=== PATIENT | female | born 1950 | race Two or more races ===

== ENCOUNTER 2019-04-02 22:35 | Emergency (ER) | payer MEDICARE, OTHER ==
[~2019-04-02] VITALS: Ht 162.6 cm; Wt 65.8 kg
[~2019-04-02 22:35] MED LIST: DOXYCYCLINE MO100 MG ORAL
--- NOTE | 2019-04-02 22:55 | NUR ---
ED Nurse Note: pt walked in c/o right knee pain x 4 days, pt reports it hurts at night time, rash appeared couple days ago and denies any recent injures. no swelling nor deformity nor wound noted, no tenderness noted, noted reddened rash on right knee. will cont monitor. pt ambulatory w/ steady gait.
[2019-04-02 23:15] VITALS: BP 138/86
--- NOTE | 2019-04-03 | NUR ---
ED Nurse Note: pt reports pain is better with medication. will cont monitor.
[2019-04-03] MEDS ORDERED: ACYCLOVIR400 MG ORAL (00:14)
[2019-04-03] MEDS ORDERED: IBUPROFEN600 MG ORAL (00:14)
[2019-04-03] MEDS ORDERED: NEURONTIN100 MG ORAL (00:14)
[2019-04-03] MEDS ORDERED: NORCO 5-325 TA1 EACH ORAL (00:14)
[2019-04-03 00:23] VITALS: BP 138/86
--- NOTE | 2019-04-03 00:23 | NUR ---
ED Nurse Note: pt cleared to be d/c per ERMD, pt discharge and aftercare instruction provided w/ prescription, pt education done via discussion and handout, pt advised to follow up with pcp or return to ed if changes in condition, vss, ambulatory w/ steady gait, pt left w/ all belongings accompanied by daughter.
--- NOTE | 2019-04-03 03:51 | Emergency Room Report ---
History of Present Illness General Chief Complaint: Pain Source: Patient Present Illness HPI Patient presents with complaints of rash to the right upper thigh in the area reports the rash has presented over the past 1 day Before that she had increased pain to that area A tingling sharp pain Denies any fevers or chills denies any fall or trauma denies any pain with walking Patient after further questioning reports that she has had shingles in the past mainly in the abdomen and other areas with similar presentation of pain follow with the rash Allergies: Coded Allergies: No Known Allergies (Unverified , 03/01/13) Patient History Past Medical History: see triage record Last Menstrual Period: n/a Reviewed Nursing Documentation: PMH: Agreed; PSxH: Agreed Nursing Documentation-PMH Past Medical History: No Stated History Review of Systems All Other Systems: negative except mentioned in HPI Physical Exam Vital Signs Date Time Temp Pulse Resp B/P (MAP) Pulse Ox O2 Delivery O2 Flow Rate FiO2 04/02/19 22:43 99.0 78 18 153/83 (106) 94 Room Air Sp02 EP Interpretation: reviewed, normal General Appearance: well appearing, no apparent distress Head: normocephalic, atraumatic Eyes: bilateral eye PERRL, bilateral eye EOMI ENT: hearing grossly normal, normal pharynx, TMs + canals normal, uvula midline Neck: full range of motion, supple, no meningismus, no bony tend Respiratory: lungs clear, no respiratory distress Cardiovascular #1: regular rate, rhythm Gastrointestinal: non tender, soft Musculoskeletal: normal inspection Neurologic: alert, oriented x3 Skin: other - 2 areas involving the medial aspect of the right knee distal thigh area also another lesion just at the proximal tibial region medially there is some question of a dermatomal pattern however early no obvious cellulitis no fluctuance Lymphatic: no adenopathy Medical Decision Making Diagnostic Impression: Primary Impression: shingles ER Course Upon initial arrival multiple differentials and consideration including but not limited to infectious, allergic reaction Given the patient's symptoms prior to the rash developing given the previous history of shingles patient is treated for this and will have close outpatient follow-up Last Vital Signs Date Time Temp Pulse Resp B/P (MAP) Pulse Ox O2 Delivery O2 Flow Rate FiO2 04/03/19 00:23 98.5 72 18 138/86 96 Room Air Status: improved Disposition: HOME, SELF-CARE Condition: Improved Scripts Hydrocodone Bit/Acetaminophen 5-325* (NORCO 5-325*) 1 Each Tablet 1 TAB ORAL Q6H PRN for For Pain, #10 TAB 0 Refills Prov: Jey Licea DO 04/03/19 Ibuprofen* (MOTRIN*) 600 Mg Tablet 600 MG ORAL Q8H PRN for For Pain, #30 TAB 0 Refills Prov: Jey Licea DO 04/03/19 Gabapentin* (NEURONTIN*) 100 Mg Capsule 200 MG ORAL THREE TIMES A DAY, #30 CAP Prov: Jey Licea DO 04/03/19 Acyclovir* (ACYCLOVIR*) 400 Mg Tablet 800 MG ORAL FIVE TIMES A DAY for 7 Days, TAB Prov: Jey Licea DO 04/03/19 Referrals: NON PHYSICIAN (PCP) [facility] Mayra Xiong [facility] Patient Instructions: Shingles, [id number] Additional Instructions: Patient is provided with the discharge instructions notified to follow up with primary doctor in the next 2-3 days otherwise return to the er with any worsening symptoms. Please note that this report is being documented using [employer] technology. This can lead to erroneous entry secondary to incorrect interpretation by the dictating instrument. Jey Licea DO Apr 03, 2019 03:51
== END 2019-04-03 00:45 | disposition home or self-care (01) ==
LOC: EMR 04-03 00:39
DX: B02.9 Zoster without complications (principal)
CPT/HCPCS: 99282; J7512